=== PATIENT | female | born 1975 | race Caucasian/White ===

== ENCOUNTER 2020-07-29 11:31 | Outpatient (REF) | payer OTHER, SELFPAY ==
[2020-07-29 13:40] LABS: SARS COV2 PCR INHOUSE NEGATIVE (Negative)
== END 2020-07-29 11:32 | disposition home or self-care (01) ==
LOC: HO.LAB 11:31
PROVIDERS: Visit Provider Internal Medicine
DX: Z20.828 Contact with and (suspected) exposure to other viral communicable diseases (principal)
CPT/HCPCS: 87635